=== PATIENT | male | born 1955 | race Caucasian/White ===

== ENCOUNTER 2017-10-18 08:28 | Day surgery (SDC) | payer OTHER ==
[~2017-10-18] VITALS: Ht 175.3 cm; Wt 83.0 kg
[~2017-10-18 08:28] MED LIST: ADVAIR 250/501 DISK IH; AMARYL1 MG PO; ASPIRIN500 MG PO; ASPIRIN81 M2 PO; DELTASONE10 MG PO; GLUCOPHAGE500 MG PO; LEVAQUIN500 MG; LOVASTATIN20 MG PO; PREDNISONE20 MG PO; PRILOSEC OTC20 MG PO; PRILOSEC40 MG PO; PRISTIQ50 MG PO; PROAIR HFA8.5 GM IH; PROTONIX40 MG PO; PROVENTIL,2.5 MG/3 M IH; PROVENTIL,200 INHALA IH; SPIRIVA1 INHALATI IH; TESSALON200 MG PO; THEO-24200 MG PO; VERAPAMIL HCL120 M1 PO
== END 2017-10-18 16:13 | disposition home or self-care (01) ==
LOC: CATH 08:28
PROVIDERS: Internal Medicine Cardiovascular Disease
DX: I25.83 Coronary atherosclerosis due to lipid rich plaque (principal); I71.2 Thoracic aortic aneurysm, without rupture; E11.65 Type 2 diabetes mellitus with hyperglycemia; E78.5 Hyperlipidemia, unspecified; I73.9 Peripheral vascular disease, unspecified; J43.9 Emphysema, unspecified; Z79.82 Long term (current) use of aspirin; Z79.84 Long term (current) use of oral hypoglycemic drugs; Z87.891 Personal history of nicotine dependence
CPT/HCPCS: 82948; C1760; C1769; C1887; C1894; J1644; J2250; J3010; J7040